=== PATIENT | female | born 1970 | race Caucasian/White ===

== ENCOUNTER 2020-07-18 09:27 | Emergency (ER) | payer OTHER ==
[2020-07-18 10:18] LABS: HEMOGLOBIN 11.6 gm/dl (12.3-15.3); RED BLOOD COUNT 3.69 M/UL (4.00-5.10); WHITE BLOOD COUNT 6.3 K/UL (4.5-11.0)
[2020-07-18 10:35] LABS: BUN/CREATININE RATIO 24 (0-10)
[2020-07-18] MEDS ORDERED: MEDROL DOSEPAK 24 MG PO (11:40)
[2020-07-18] MEDS ORDERED: VENTOLIN HFA 66.7 GM INH (11:40)
[2020-07-18] MEDS ORDERED: ZYRTEC10 MG PO (11:40)
[2020-07-18] MEDS ORDERED: FLONASE ALLER15.8 ML (11:40)
== END 2020-07-18 11:57 | disposition home or self-care (01) ==
LOC: ER1 09:27
PROVIDERS: Physician Assistant Medical
DX: J06.9 Acute upper respiratory infection, unspecified (principal); I10 Essential (primary) hypertension; Z90.49 Acquired absence of other specified parts of digestive tract; Z88.0 Allergy status to penicillin; Z95.0 Presence of cardiac pacemaker; Z20.822 Contact with and (suspected) exposure to COVID-19
CPT/HCPCS: 0240U; 71045; 80053; 83605; 85025; 87040; 99283